=== PATIENT | male | born 1960 | race African-American/Black ===

== ENCOUNTER 2020-03-28 11:46 | Inpatient (IN) | payer OTHER ==
[2020-03-28 13:22] VITALS: BMI 37.3
[2020-03-28] MEDS ORDERED: MAGNESIUM HYDROX 2400MG/30ML ORAL SUSPENSION 30 ML CUP PO PRN (13:35)
[2020-03-28] MEDS ORDERED: METHOCARBAMOL 500 MG TABLET PO PRN (13:35)
[2020-03-28] MEDS ORDERED: IBUPROFEN 400 MG TABLET (FP) PO PRN (13:35)
[2020-03-28] MEDS ORDERED: NICOTINE POLACRILEX 2 MG GUM BUC PRN (13:35)
[2020-03-28] MEDS ORDERED: ACETAMINOPHEN 325 MG TABLET (FP) PO PRN ×2 (13:35)
[2020-03-28] MEDS ORDERED: MAG HYDROX/AL HYDROX/SIMETH 30 ML UNIT-DOSE CUP PO PRN (13:35)
[2020-03-28] MEDS ORDERED: MENTHOL/PHENOL 1 EACH UD MM PRN (13:35)
[2020-03-28] MEDS ORDERED: BISMUTH SUBSALICYLATE 524 MG/30 ML UD PO PRN (13:35)
[2020-03-28] MEDS ORDERED: chlordiazePOXIDE HCL 25 MG CAPSULE PO PRN (13:35)
[2020-03-28] MEDS ORDERED: MAGNESIUM CITRATE 300 ML BOTTLE PO PRN (13:35)
[2020-03-28] MEDS ORDERED: ONDANSETRON *ODT* 4 MG TABLET SL PRN (13:35)
[2020-03-28] MEDS ORDERED: hydrOXYzine PAMOATE 25 MG CAPSULE (FP) PO SCH (14:00)
[2020-03-28] MEDS: NICOTINE 21 MG/24 HOURS TOPICAL PATCH TD SCH (15:33)
[2020-03-28] MEDS: CELECOXIB 200 MG CAPSULE PO SCH (15:33)
[2020-03-28] MEDS: LOSARTAN POTASSIUM 50 MG TABLET PO SCH (15:33)
[2020-03-28] MEDS: HYDROCHLOROTHIAZIDE 12.5 MG CAPSULE (FP) PO SCH (15:35)
[2020-03-28] MEDS: hydrOXYzine PAMOATE 25 MG CAPSULE (FP) PO PRN ×2 (17:39→22:13)
[2020-03-28] MEDS: chlordiazePOXIDE HCL 25 MG CAPSULE PO SCH ×2 (17:40→22:13)
[2020-03-28] MEDS: THIAMINE HCL 100 MG TABLET (FP) PO SCH (22:14)
[2020-03-28] MEDS: MELATONIN 5 MG TABLETS PO SCH (22:14)
[2020-03-29] MEDS: chlordiazePOXIDE HCL 25 MG CAPSULE PO SCH ×4 (06:27→22:53)
[2020-03-29] MEDS: HYDROCHLOROTHIAZIDE 12.5 MG CAPSULE (FP) PO SCH (10:30)
[2020-03-29] MEDS: NICOTINE 21 MG/24 HOURS TOPICAL PATCH TD SCH (10:30)
[2020-03-29] MEDS: LOSARTAN POTASSIUM 50 MG TABLET PO SCH (10:30)
[2020-03-29] MEDS: PRENATAL VITAMINS W/ FOLIC ACID TABLET (FP) PO SCH ×2 (10:31→10:35)
[2020-03-29] MEDS: TIOTROPIUM BROMIDE 2.5 MCG (SPIRIVA) RESPIMAT INHALER IH SCH (10:31)
[2020-03-29] MEDS: CELECOXIB 200 MG CAPSULE PO SCH (11:00)
[2020-03-29 11:59] LABS: HEMATOCRIT 40.5 % (35.4-49); HEMOGLOBIN 13.6 GM/dL (11.7-16.9); MCH 31.7 pg (25.7-33.7); MCHC 33.5 g/dl (32.0-35.9); MEAN CELL VOLUME 94.4 fl (80-96); MEAN PLT VOLUME 8.8 fl (7.5-11.1); PLATELET COUNT 214 K/MM3 (134-434); RBC 4.29 M/mm3 (4.00-5.60); RDW 13.8 % (11.9-15.9); WHITE BLOOD COUNT 9.4 K/mm3 (4.0-10.0)
[2020-03-29 12:00] LABS: POTASSIUM 3.9 mmol/L (3.5-5.1)
[2020-03-29 12:11] LABS: BLOOD UREA NITROGEN 14.7 mg/dL (7-18); CALCIUM 8.2 mg/dL (8.5-10.1)
[2020-03-29 12:15] LABS: BILIRUBIN,TOTAL 0.7 mg/dL (0.2-1); TOT PROT 6.8 g/dl (6.4-8.2)
[2020-03-29 12:57] LABS: HIV INTERPRETATION NEGATIVE (NEGATIVE)
[2020-03-29] MEDS: THIAMINE HCL 100 MG TABLET (FP) PO SCH (22:52)
[2020-03-29] MEDS: MELATONIN 5 MG TABLETS PO SCH (22:52)
[2020-03-30] MEDS: chlordiazePOXIDE HCL 25 MG CAPSULE PO SCH ×4 (05:50→22:16)
[2020-03-30] MEDS: NICOTINE 21 MG/24 HOURS TOPICAL PATCH TD SCH (10:10)
[2020-03-30] MEDS: LOSARTAN POTASSIUM 50 MG TABLET PO SCH (10:11)
[2020-03-30] MEDS: CELECOXIB 200 MG CAPSULE PO SCH (10:11)
[2020-03-30] MEDS: HYDROCHLOROTHIAZIDE 12.5 MG CAPSULE (FP) PO SCH (10:14)
[2020-03-30] MEDS: PRENATAL VITAMINS W/ FOLIC ACID TABLET (FP) PO SCH (10:15)
[2020-03-30] MEDS: TIOTROPIUM BROMIDE 2.5 MCG (SPIRIVA) RESPIMAT INHALER IH SCH (10:16)
[2020-03-30] MEDS: ALBUTEROL SO4 HFA INHALER IH PRN (10:16)
[2020-03-30] MEDS: THIAMINE HCL 100 MG TABLET (FP) PO SCH (22:16)
[2020-03-30] MEDS: MELATONIN 5 MG TABLETS PO SCH (22:16)
[2020-03-31] MEDS ORDERED: chlordiazePOXIDE HCL 10 MG CAPSULE PO PRN
[2020-03-31] MEDS: chlordiazePOXIDE HCL 10 MG CAPSULE PO SCH ×4 (05:38→22:13)
[2020-03-31] MEDS: CELECOXIB 200 MG CAPSULE PO SCH (10:05)
[2020-03-31] MEDS: LOSARTAN POTASSIUM 50 MG TABLET PO SCH (10:06)
[2020-03-31] MEDS: PRENATAL VITAMINS W/ FOLIC ACID TABLET (FP) PO SCH (10:06)
[2020-03-31] MEDS: HYDROCHLOROTHIAZIDE 12.5 MG CAPSULE (FP) PO SCH (10:06)
[2020-03-31] MEDS: TIOTROPIUM BROMIDE 2.5 MCG (SPIRIVA) RESPIMAT INHALER IH SCH (10:06)
[2020-03-31] MEDS: NICOTINE 21 MG/24 HOURS TOPICAL PATCH TD SCH (10:07)
[2020-03-31] MEDS: ALBUTEROL SO4 HFA INHALER IH PRN (10:09)
[2020-03-31] MEDS: guaiFENesin 600 MG TABLET.ER (FP) PO SCH ×2 (15:37→22:13)
[2020-03-31] MEDS: MELATONIN 5 MG TABLETS PO SCH (22:13)
[2020-03-31] MEDS: THIAMINE HCL 100 MG TABLET (FP) PO SCH (22:13)
[2020-04-01] MEDS ORDERED: chlordiazePOXIDE HCL 10 MG CAPSULE PO SCH (05:00)
[2020-04-01 09:40] VITALS: BP 138/83; PULSE 88; TEMP 96.9
[2020-04-01] MEDS: guaiFENesin 600 MG TABLET.ER (FP) PO SCH (10:43)
[2020-04-01] MEDS: CELECOXIB 200 MG CAPSULE PO SCH (10:43)
[2020-04-01] MEDS: HYDROCHLOROTHIAZIDE 12.5 MG CAPSULE (FP) PO SCH (10:43)
[2020-04-01] MEDS: LOSARTAN POTASSIUM 50 MG TABLET PO SCH (10:43)
[2020-04-01] MEDS: PRENATAL VITAMINS W/ FOLIC ACID TABLET (FP) PO SCH (10:44)
[2020-04-01] MEDS: ALBUTEROL SO4 HFA INHALER IH PRN (10:45)
[2020-04-01] MEDS: TIOTROPIUM BROMIDE 2.5 MCG (SPIRIVA) RESPIMAT INHALER IH SCH (10:45)
[2020-04-01] MEDS: NICOTINE 21 MG/24 HOURS TOPICAL PATCH TD SCH (10:45)
[2020-04-02] MEDS ORDERED: chlordiazePOXIDE HCL 10 MG CAPSULE PO ONE (05:00)
== END 2020-04-01 12:33 | disposition home or self-care (01) | DRG 774 ==
LOC: YASAS 11:46 → Y3N 13:39
PROVIDERS: ADMIT Allergy & Immunology; ATTEND Allergy & Immunology
PROC: HZ2ZZZZ Detoxification Services for Substance Abuse Treatment (ICD-10-PCS; principal; 2020-03-28)
DX: F10.230 Alcohol dependence with withdrawal, uncomplicated (principal); F14.20 Cocaine dependence, uncomplicated; F17.210 Nicotine dependence, cigarettes, uncomplicated; F32.9 Major depressive disorder, single episode, unspecified; I10 Essential (primary) hypertension; J45.20 Mild intermittent asthma, uncomplicated; M17.0 Bilateral primary osteoarthritis of knee; M19.072 Primary osteoarthritis, left ankle and foot; M19.071 Primary osteoarthritis, right ankle and foot; M19.041 Primary osteoarthritis, right hand; R76.11 Nonspecific reaction to tuberculin skin test without active tuberculosis; Z59.0 Homelessness
CPT/HCPCS: 36415; 71045-TC-FY; 80053; 85027; 86780; 87389; 93005; 93010; C9803; U0003